=== PATIENT | female | born 1970 | race Caucasian/White ===

== ENCOUNTER 2019-05-14 19:44 | Inpatient (IN) | payer MEDICAID ==
[~2019-05-14] VITALS: Ht 165.1 cm; Wt 99.0 kg
[2019-05-18 07:58] VITALS: BP 143/89
== END 2019-05-18 12:24 | disposition home or self-care (01) | DRG 854 ==
LOC: ED 20:06 → EDIP 22:50 → 4WST 05-15 00:23
PROVIDERS: ADMIT Internal Medicine; ATTEND Internal Medicine
PROC: 0W950ZZ Drainage of Lower Jaw, Open Approach (ICD-10-PCS; principal; 2019-05-14)
DX: A41.9 Sepsis, unspecified organism (principal); L03.221 Cellulitis of neck; R65.20 Severe sepsis without septic shock; F17.210 Nicotine dependence, cigarettes, uncomplicated; M27.2 Inflammatory conditions of jaws; R13.10 Dysphagia, unspecified; E83.42 Hypomagnesemia; E11.9 Type 2 diabetes mellitus without complications; I10 Essential (primary) hypertension; E87.6 Hypokalemia; K04.7 Periapical abscess without sinus; Z90.710 Acquired absence of both cervix and uterus; Z79.899 Other long term (current) drug therapy
CPT/HCPCS: 36415; 41800; 70491; 80048; 80053; 82962; 83605; 83735; 84145; 85025; 85651; 86140; 86361; 87040; 93005; 96365; 96375; G0378; J1650; J2405; Q9967; J1815; J2270; J3475; J7030; J7120